=== PATIENT | male | born 1965 | race African-American/Black ===

== ENCOUNTER 2019-11-20 14:39 | Emergency (ER) | payer OTHER ==
[~2019-11-20] VITALS: Ht 177.8 cm; Wt 90.7 kg
[2019-11-20 14:59] VITALS: BP 122/76
[2019-11-20] MEDS ORDERED: ATORVASTATIN CA20 MG ORAL (15:04)
[2019-11-20] MEDS ORDERED: AMLODIPINE BESYL5 MG ORAL (15:04)
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
--- NOTE | 2019-11-20 15:43 | Emergency Room Report ---
History of Present Illness General Chief Complaint: Multiple Trauma/Fall Source: Patient Present Illness Allergies: Coded Allergies: No Known Allergies (Unverified , 11/20/19) Patient History Past Medical History: see triage record Past Surgical History: none Pertinent Family History: none Reviewed Nursing Documentation: PMH: Agreed; PSxH: Agreed Nursing Documentation-PMH Past Medical History: No History, Except For Hx Cardiac Problems: No - high cholesterol Hx Hypertension: Yes Hx Pacemaker: No Hx Asthma: No Hx COPD: No Hx Diabetes: No Hx Cancer: No Hx Gastrointestinal Problems: No Hx Dialysis: No History Of Psychiatric Problem: No Hx Neurological Problems: No Hx Cerebrovascular Accident: No Hx Seizures: No Review of Systems All Other Systems: negative except mentioned in HPI Physical Exam Vital Signs Date Time Temp Pulse Resp B/P (MAP) Pulse Ox O2 Delivery O2 Flow Rate FiO2 11/20/19 14:59 97.5 81 19 122/76 (91) 98 Room Air Medical Decision Making PA Attestation Dr. Adams is my supervising Physician whom patient management has been discussed with. Diagnostic Impression: Primary Impression: Right knee pain Qualified Codes: M25.561 - Pain in right knee Additional Impressions: Abrasion of ankle Qualified Codes: S90.511A - Abrasion, right ankle, initial encounter Low back pain Qualified Codes: M54.5 - Low back pain Contusion of soft tissue ER Course Pt. presents to the ED c/o [ ] Ddx considered but are not limited to Fracture, dislocation, contusion, Sprain/ Strain/Spasm, Epidural abscess, Neoplastic mets. Vital signs: are WNL, pt. is afebrile H&PE are most consistent with musculoskeletal injury will perform imaging to r/ o fractures/dislocations. ORDERS: - X-ray [ ] - negative for fx, Dislocation, or significant soft tissue injury, per preliminary read in ED, and signed by CONRADO Carbone, my supervising physician has reviewed, and agrees with my interpretation. ED INTERVENTIONS: - [ ] DISCHARGE: At this time pt. is stable for d/c to home. Will provide printed patient care instructions, and any necessary prescriptions. Care plan and follow up instructions have been discussed with the patient prior to discharge. Other X-Ray Diagnostic Results Other X-Ray Diagnostic Results : X-Ray ordered: Right knee # of Views/Limited Vs Complete: 3 View Indication: Pain EP Interpretation: Yes PA Xray: Interpretation reviewed, by supervising MD, and agrees with findings. Interpretation: no dislocation, no soft tissue swelling, no fractures, nonspecific bowel gas Impression: No acute disease Electronically Signed by: Manuela Carbone PA-C Last Vital Signs Date Time Temp Pulse Resp B/P (MAP) Pulse Ox O2 Delivery O2 Flow Rate FiO2 11/20/19 15:09 89 16 Room Air 11/20/19 14:59 97.5 122/76 98 Status: improved Disposition: HOME, SELF-CARE Condition: Stable Patient Instructions: Abrasion, [id number], Contusion, [id number]-[id number], Knee Sprain, [id number] Additional Instructions: Take medications as directed. Follow up with an FACILITY ASSISTANT in 3-5 days, even if your symptoms have resolved. If symptoms persist MRI may be required at the discretion of your PCP or Ortho Specialist. --Please review list of primary care clinics, if you do not already have a primary care provider who can give you an Orthopedic Referral. Return sooner to ED if new symptoms occur, or current symptoms become worse. Do not drink alcohol, drive, or operate heavy machinery while taking [place] as this may cause drowsiness. - Please note that this Emergency Department Report was dictated using [employer] equipment operator technology software, occasionally this can lead to erroneous entry secondary to interpretation by the dictation equipment. Manuela Carbone Nov 20, 2019 15:43
[2019-11-20] MEDS ORDERED: Neosporin Oint Ud Pkt TOPIC ONE (15:45)
[2019-11-20] MEDS ORDERED: ROBAXIN-750750 MG PO (16:03)
[2019-11-20] MEDS ORDERED: IBUPROFEN600 MG ORAL (16:03)
[2019-11-20] MEDS ORDERED: LIDODERM700 M1 TOPIC (16:03)
[2019-11-20 16:17] VITALS: BP 135/72
--- NOTE | 2019-11-20 16:17 | NUR ---
ER DISCHARGE NOTE: Patient is cleared to be discharged per PA, pt is aox4, on room air, with stable vital signs. pt was given dc and prescription instructions, pt was able to verbalize understanding, pt id band removed. pt is able to ambulate and pt took all belongings.
--- NOTE | 2019-11-20 17:19 | Diagnostic Imaging Report ---
History: PAIN Exam: XR RIGHT KNEE 3 views Comparison: None available FINDINGS: No fracture, dislocation or joint effusion. The joint spaces appear within limits. IMPRESSION: No fracture, dislocation or joint effusion.
== END 2019-11-20 16:17 | disposition home or self-care (01) ==
LOC: EMR 16:07
DX: M25.561 Pain in right knee (principal); S90.511A Abrasion, right ankle, initial encounter; M54.5 Low back pain; X58.XXXA Exposure to other specified factors, initial encounter; Y93.9 Activity, unspecified; Y92.9 Unspecified place or not applicable; E78.00 Pure hypercholesterolemia, unspecified; I10 Essential (primary) hypertension
CPT/HCPCS: 73562; Z7502; 99283